=== PATIENT | male | born 1950 | race Caucasian/White ===

== ENCOUNTER 2024-11-18 09:16 | Outpatient (CLI) | payer OTHER, MEDICARE, SELFPAY ==
--- OUTSIDE RECORDS SUMMARY | 2024-11-18 09:33 | XMS_ITS | Referral Summary ---
Author Organization [facility] Address [address] [place] [address] Care Team Providers Care Laborer Filter Plant Name Role Phone Duncan Andre MD Unavailable [phone] Yuliya Reyna MD Unavailable [phone] Albert Driscoll DO Primary Care Provider [phone] Allergies No known active allergies Medications vibegron (Gemtesa) 75 mg tablet Take 75 mg by mouth nightly Active pantoprazole DR (PROTONIX) 40 mg EC tabletIndication s:Stress Ulcer Prophylaxis Take 1 tablet (40 mg total) by mouth 2 (two) times a day 60 tablet 1 3 Active Additional Information Patient taking differently:40 mg oralNightly, Indications: Stress Ulcer Prophylaxis, Informant: Self, Reported on 05/04/2024 metoprolol tartrate (LOPRESSOR) 25 mg immediate release tabletIndication s:Atrial Arrhythmia Take 0.5 tablets (12.5 mg total) by mouth 2 (two) times a day 30 tablet 1 3 Active Additional Information Patient taking differently:12.5 mg oral 2 times daily,Indications: Atrial Arrhythmia, hypertension, Informant: Self, Reported on 05/04/2024 cholecalciferol (VITAMIN D-3) 2000 unit tablet Take 1 tablet (2,000 Units total) by mouth every morning 4 Active hydroCHLOROthiaz elfego (HYDRODIURIL) 25 mg tablet Take 1 tablet (25 mg total) by mouth every morning 3 Active meloxicam (MOBIC) 15 mg tablet Take 1 tablet (15 mg total) by mouth nightly 4 Active metFORMIN (GLUCOPHAGE) 500 mg tablet Take 1 tablet (500 mg total) by mouth nightly 4 Active rOPINIRole (REQUIP) 0.5 mg tablet Take 1 tablet (0.5 mg total) by mouth nightly 4 Active aspirin 81 mg enteric coated tabletIndication s:Deep Vein Thrombosis Prevention Take 1 tablet (81 mg total) by mouth 2 (two) times a day for 14 days 28 tablet 5 Active docusate sodium (COLACE) 100 mg capsuleIndicatio ns:constipation Take 1 capsule (100 mg total) by mouth 2 (two) times a day 60 capsule 1 5 Active acetaminophen 500 mg capsuleIndicatio ns:Pain Take 2 capsules (1,000 mg total) by mouth every 6 (six) hours 112 tablet 5 Active oxyCODONE (ROXICODONE) 5 mg immediate release tabletIndication s:Pain Take 1 tablet (5 mg total) by mouth every 4 (four) hours as needed for pain 20 tablet 5 Active Active Problems Problem Noted Date Diagnosed Date S/P reverse total shoulder arthroplasty, left Osteoarthritis of glenohumeral joint, left 03/01 Aortic stenosis due to bicuspid aortic valve 03/2023 Aortic valve stenosis 08/09/2022 Fatigue 07/12/2022 Overview (07/12/2022): Added automatically from request for surgery [id number] Essential (primary) hypertension 08/03/2021 08/12/2022 Upper gastrointestinal bleed 07/13/2021 Shortness of breath 07/02/2021 Overview (08/12/2022): Added automatically from request for surgery [id number] Dizziness on standing 07/02/2021 08/12/2022 History of surgical procedure 03/06/2015 Bicuspid aortic valve 12/06/2013 08/12/2022 Cardiovascular symptoms 12/06/2013 08/13/19 23 Social History Tobacco Use Types Packs/Day Years Used Date Smoking Tobacco: Never Cigarettes Smokeless Tobacco: Never Tobacco Cessation:Counseling Given: Not Answered OASIS D0700: Social Isolation Answer Da te Recorded Frequency of experiencing loneliness or isolatio n Never 10/24/2022 OASIS A1250: Transportation Answer Date Recorded Lack of Transportation (Medical) No 10/24/2022 Lack of Transportation (Non-Medical) No 10/24/2022 Patient Unable or Declines to Respond No 10/24/2022 OASIS B1300: Health Literacy Answer Sebastian e Recorded Frequency of needing help to read materials from doctor or pharmacy Never 10/24/2022 Social Connection and Isolat ion Panel [NHANES] Answer Date Recorded In a typical week, how many times do you talk on the phone with family, friends, or neighbors? More than three times a week 09/02/2022 How often do you get togethe r with friends or relatives? More than three times a week 09/02/2022 How often do you attend chur or cheondoism services? Never 09/02/2022 Do you belong to any clubs o r organizations such as nondenominational groups, unions, fraternal or athletic groups, or school groups? No 09/02/2022 How often do you attend meet ings of the clubs or organizations you belong to? Never 09/02/2022 Are you , , di vorced, , never , or living with a partner? 09/02/2022 AUDIT-C Answer Date Recorded Q1: How often do you have a drink containing alc ohol? Monthly or less 05/04/2024 Q2: How many drinks containi ng alcohol do you have on a typical day when you are drinking? 1 or 2 05/04/2024 Q3: How often do you have si x or more drinks on one occasion? Never 05/04/2024 Overall Financial Resource Strain (CARDIA) Answe r Date Recorded How hard is it for you to pa y for the very basics like food, housing, medical care, and heating? Not hard at all 09/02/2022 Hunger Vital Sign Answer Date Recorded Within the past 12 months, y ou worried that your food would run out before you got the money to buy more. Never true 09/03/19 23 Within the past 12 months, t he food you bought just didn't last and you didn't have money to get more. Never true 09/02/2022 PRAPARE - Transportation Answer Date Re corded In the past 12 months, has l ack of transportation kept you from medical appointments or from getting medications? No 08/19 In the past 12 months, has l ack of transportation kept you from meetings, work, or from getting things needed for daily living? No 09/02/2022 Housing Stability Vital Sign Answer Sebastian e Recorded In the last 12 months, was t here a time when you were not able to pay the mortgage or rent on time? No 09/02/2022 In the last 12 months, how many places have you lived? 1 09/02/2022 In the last 12 months, was t here a time when you did not have a steady place to sleep or slept in a group home (including now)? No 09/02/2022 Personal Safety Answer Date Recorded Have you ever been in or are you currently in a harmful physical or emotional relationship or is someone making you feel afraid or unsafe? Denies 05/04/2024 Sex and Gender Information Value Date Recorded Sex Assigned at Not on file Legal Sex Male 2:14 AM VOCATIONAL CASE MANAGER Gender Identity Male 07/30/2023 4:12 PM CDT Sexual Orientation Straight 07/30/2023 4: 12 PM CDT Last Filed Vital Signs Vital Sign Reading Time Taken Comments Blood Pressure 122/79 05/05/2024 8:10 AM VOCATIONAL CASE MANAGER Pulse 71 05/05/2024 8:10 AM VOCATIONAL CASE MANAGER Temperature 36.8 C (98.3 F) 05/05/2024 8:10 AM VOCATIONAL CASE MANAGER Respiratory Rate 16 05/05/2024 8:10 AM VOCATIONAL CASE MANAGER Oxygen Saturation 93% 05/05/2024 8:10 AM VOCATIONAL CASE MANAGER Inhaled Oxygen Concentration - - Weight 103 kg (227 lb) 06/14/2024 11:14 AM VOCATIONAL CASE MANAGER Height 172.7 cm (5' 8) 06/14/2024 11:14 AM VOCATIONAL CASE MANAGER Body Mass Index 34.52 06/14/2024 11:14 AM VOCATIONAL CASE MANAGER Plan of Treatment Not on file Medical Devices Implanted Type Area Ortho Nurse Device Identifier Shelf Expiration Date Model / Serial / Lot [employer] Lobo-Quinten ds Perimount Magna Ease 27mm Bioprosthesis [id number] - [id number] - [id number] Implanted:Qty: 1 on 08/30/2022 by Duncan Andre MD at [facility] Prosthetic Valve N/A: Heart [employer] 04/28/2026 [id number] / [id number] / Description:Aortic valve Andrew V[employer] Device Clsr Perclose Prostyle Sut-Mediatd Closure-Repair Sys 94897-91 - [id number] Implanted:Qty: 1 on 08/30/2022 by Duncan Andre MD at [facility] N/A: Heart [employer] 01/18/2023 [id number] / / [id number] Andrew Vascular Device Clsr Perclose Prostyle Sut-Mediatd Closure-Repair Sys 20398-03 - [id number] Implanted:Qty: 1 on 08/30/2022 by Duncan Andre MD at [facility] N/A: Heart [employer] 01/18/2023 12814-34 / / [id number] [employer] Insert Humeral Retention Reverse Size 3/4 +0 Perform 42mm Combination [id number] - [id number] - [id number] Implanted:Qty: 1 on 05/04/2024 by Charles Goff MD at [facility] Left: Shoulder [employer] 12/18/2027 [id number] / [id number] / [employer] Baseplate Glenoid Reverse Aequalis Perform 29mm Ulw075 - [id number] - [id number] Implanted:Qty: 1 on 05/04/2024 by Charles Goff MD at [facility] Left: Shoulder [employer] 03/10/2029 [id number] / [id number] / [employer] Aequalis Perform Reversed 6.5mm 35mm Central Glenoid Screw Ivb433 - [id number] Implanted:Qty: 1 on 05/04/2024 by Charles Goff MD at [facility] Left: Shoulder [employer] [id number] / / [employer] Aequalis Perform Reversed 5mm 34mm Peripheral Glenoid Screw [id number] - [id number] Implanted:Qty: 2 on 05/04/2024 by Charles Goff MD at [facility] Left: Shoulder [employer] [id number] / / [employer] Aequalis Perform Reversed Od5 Mm L46 Mm Peripheral Glenoid Screw Baseplate Nonsterile Tup374 - [id number] Implanted:Qty: 1 on 05/04/2024 by Charles Goff MD at [facility] Left: Shoulder [employer] [id number] / / [employer] Tornier Aequalis Perform Od42 Mm Reverse Shoulder Standard Sphere Glenoid Ytl763 - [id number] - [id number] Implanted:Qty: 1 on 05/04/2024 by Charles Goff MD at [facility] Left: Shoulder [employer] 11/13/2028 [id number] / [id number] / [employer] Tray Stem Humeral Shoulder Reverse Long Tornier Perform [id number] Dwx3pl - [id number] - [id number] Implanted:Qty: 1 on 05/04/2024 by Charles Goff MD at [facility] Left: Shoulder [employer] 01/21/2029 [id number] / [id number] / Insurance MEDICARE [facility] MEDICARE [facility] MEDICARE [employer] ACCESS OOS MEDICARE Advance Directives For more information, please contact: [phone] * Full Code (Latest Code Status on File) Date Activated Date Inactivated Comments 05/04/2024 2:12 PM 05/05/2024 6:34 PM * Full Code Date Activated Date Inactivated Comments 08/30/2022 1:41 PM 09/05/2022 5:43 PM * Full Code Date Activated Date Inactivated Comments 07/22/2022 3:30 PM 07/22/2022 11:33 PM Care Teams Laborer Filter Plant Relationship Specialty Start Date End Date Albert Driscoll DO [address] [place] [address] PCP - General Internal Medicine 03/01/24 Duncan Andre MD Surgeon Cardiothoracic Surgery 09/05/22 Yuliya Reyna MD [address] [place] [address] Consulting Physician Cardiovascular Disease 09/05/22
--- OUTSIDE RECORDS SUMMARY | 2024-11-18 09:33 | XMS_ITS | Clinical Summary ---
Author Organization [facility] Address [address] [place] [address] Care Team Providers Care Plywood Patcher Name Role Phone Duncan Andre MD Unavailable [phone] Yuliya Reyna MD Unavailable [phone] Albert Driscoll DO Primary Care Provider [phone] Allergies No known active allergies Medications vibegron [...] (07/12/2022): Added automatically from request for surgery [id number] Essential (primary) hypertension 08/03/2021 08/12/2022 Upper gastrointestinal bleed 07/13/2021 Shortness of breath 07/02/2021 Overview (08/12/2022): Added automatically from request for surgery [id number] Dizziness on standing 07/02/2021 08/12/2022 History of surgical procedure 03/06/2015 Bicuspid aortic valve 12/06/2013 08/12/2022 Cardiovascular symptoms 12/06/2013 08/13/19 23 Surgical History Surgery Date Site/Laterality Comments FL EXCISION HYDROCELE UNILATERAL Inguinal Hernia Repair With Excision Of Hydrocele - (Added by TW Conv) EAR SURGERY Ear Surgery - (Added by TW Conv) BLADDER SURGERY 03/21/2022 - 04/20/2022 Urolift FRACTURE SURGERY ANKLE FRACTURE SURGERY 04/21/1981 - 04/20/1982 Right re-attachment, skin grafts, ORIF ANKLE HARDWARE REMOVAL 04/21/2014 - 04/20/2015 Right CARDIAC CATHETERIZATION 07/22/2022 COLONOSCOPY CYSTOSCOPY x2 UPPER GASTROINTESTINAL ENDOSCOPY 07/20/2021 - 08/18/2021 SPINE SURGERY CERVICAL SPINE SURGERY EAR SURGERY Right glue ear IR PICC LINE PLACEMENT > 5 YEARS 10/13/2014 N/A CARDIAC VALVE REPLACEMENT PROSTATE SURGERY Medical History Medical History Date Comments Multiple injuries Fracture, mult iple, compound - (Added by TW Conv) Open wound of right lower leg Wo und of right leg - (Added by TW Conv) GERD (gastroesophageal reflux disease) RA (rheumatoid arthritis) (HCC) GI bleed 07/2021 1 unit PRBC's Anxiety about health History of transfusion H/O dizziness History of methicillin resis tant staphylococcus aureus (MRSA) related to ankle fracture Osteomyelitis (HCC) right ankle Heart disease Hypertension Autoimmune disease GI (gastrointestinal bleed) Family History Medical History Relation Name Comments Arthritis Father Hermes Blood Clot Father Hermes Family history of blood clots - (Added by TW Conv) Clotting disorder Father Hermes Diabetes Father Hermes Hearing loss Father Hermes Vision loss Father Hermes Arthritis Mother Penny Diabetes Mother Penny Family history of diabetes mellitus - (Added by TW Conv) Hypertension Mother Penny Obesity Mother Penny Stroke Mother Penny Blood Clot Sister Family history of blood clots - (Added by TW Conv) Anesthesia problems Neg Hx Relation Name Status Comments Father Hermes Mother Penny Sister Social History Tobacco Use Types Packs/Day Years [...] 09/02/2022 How often do you attend chur ch or scientologist services? Never 09/02/2022 Do you belong to any clubs o r organizations such as latter day groups, unions, fraternal or athletic groups, or [...] place to sleep or slept in a nursing home (including now)? No 09/02/2022 Personal Safety Answer Date Recorded Have you ever been in or are you currently in a harmful physical or emotional relationship or is someone making you feel afraid or unsafe? Denies 05/04/2024 Sex and Gender Information Value Date Recorded Sex Assigned at Not on file Legal Sex Male 2:14 AM PLUMBER APPRENTICE Gender Identity Male 07/30/2023 4:12 PM CDT Sexual Orientation Straight 07/30/2023 4: 12 PM CDT Obstetrics History Last Filed Vital Signs Vital Sign Reading Time Taken Comments Blood Pressure 122/79 05/05/2024 8:10 AM PLUMBER APPRENTICE Pulse 71 05/05/2024 8:10 AM PLUMBER APPRENTICE Temperature 36.8 C (98.3 F) 05/05/2024 8:10 AM PLUMBER APPRENTICE Respiratory Rate 16 05/05/2024 8:10 AM PLUMBER APPRENTICE Oxygen Saturation 93% 05/05/2024 8:10 AM PLUMBER APPRENTICE Inhaled Oxygen Concentration - - Weight 103 kg (227 lb) 06/14/2024 11:14 AM PLUMBER APPRENTICE Height 172.7 cm (5' 8) 06/14/2024 11:14 AM PLUMBER APPRENTICE Body Mass Index 34.52 06/14/2024 11:14 AM PLUMBER APPRENTICE Plan of Treatment Health Maintenance Due Date Last Done Comments Colon Cancer Screening-Colonoscopy 1950 Depression Screening 1950 Hepatitis C Screening 1950 DTaP/Tdap/Td Vaccine (1 - Tdap) 08/03/1963 Hepatitis B Screening 1970 Zoster Vaccine (2 of 3) 04/04/2015 02/07/2015 Pneumococcal vaccine 65+ (2 of 2 - PPSV23) 02/16/2016 02/15/2015 Well Visit 65+ 2017 Covid-19 Vaccine (3 - 2023-2 5 season) 2023 07/28/2020, 06/23/2020 Influenza Vaccine (#1) 2024 2, 01/05/2021, 02/07/2020, Additional history exists Fall Risk Assessment 05/05/2025 05/05/2024 Medical Devices Implanted Type Area Nanny/Household Manager Device Identifier Shelf Expiration Date Model / Serial / Lot [employer] Melodie ds Perimount Magna Ease 27mm Bioprosthesis [id number] - [id number] - [id number] Implanted:Qty: 1 on 08/30/2022 by Duncan Andre MD at [facility] Prosthetic Valve N/A: Heart [employer] 04/28/2026 [id number] [id number] / [id number] / Description:Aortic valve Andrew [employer] Device Clsr Perclose Prostyle Sut-Mediatd Closure-Repair Sys 91828-60 - [id number] Implanted:Qty: 1 on 08/30/2022 by Duncan Andre MD at [facility] N/A: Heart [employer] 01/18/2023 21296-17 / / [id number] Andrew Vascular Device Clsr Perclose Prostyle Sut-Mediatd Closure-Repair Sys 43226-11 - [id number] Implanted:Qty: 1 on 08/30/2022 by Duncan Andre MD at [facility] N/A: Heart [employer] 01/18/2023 43685-21 / / [id number] [employer] Insert Humeral Retention Reverse Size 3/4 +0 Perform 42mm Combination [id number] - [id number] - [id number] Implanted:Qty: 1 on 05/04/2024 by Charles Goff MD at [facility] Left: Shoulder [employer] 12/18/2027 [id number] / [id number] / [employer] Baseplate Glenoid Reverse Aequalis Perform 29mm Lpj670 - [id number] - [id number] Implanted:Qty: 1 on 05/04/2024 by Charles Goff MD at [facility] Left: Shoulder [employer] 03/10/2029 PEG141 / [id number] / [employer] Aequalis Perform Reversed 6.5mm 35mm Central Glenoid Screw Wzu106 - [id number] Implanted:Qty: 1 on 05/04/2024 by Charles Goff MD at [facility] Left: Shoulder [employer] [id number] / / [employer] Aequalis Perform Reversed 5mm 34mm Peripheral Glenoid Screw Njy319 - [id number] Implanted:Qty: 2 on 05/04/2024 by Charles Goff MD at [facility] Left: Shoulder [employer] [id number] / / [employer] Aequalis Perform Reversed Od5 Mm L46 Mm Peripheral Glenoid Screw Baseplate Nonsterile Npf041 - [id number] Implanted:Qty: 1 on 05/04/2024 by Charles Goff MD at [facility] Left: Shoulder [employer] QYV547 / / [employer] Tornier Aequalis Perform Od42 Mm Reverse Shoulder Standard Sphere Glenoid Odp754 - [id number] - [id number] Implanted:Qty: 1 on 05/04/2024 by Charles Goff MD at [facility] Left: Shoulder [employer] 11/13/2028 WNY567 / [id number] / [employer] Tray Stem Humeral Shoulder Reverse Long Tornier Perform [id number] Dwx3pl - [id number] - [id number] Implanted:Qty: 1 on 05/04/2024 by Charles Goff MD at [facility] Left: Shoulder [employer] 01/21/2029 [id number] / [id number] / Insurance MEDICARE [facility]PPO Address: [address] [address] [facility] HMO/PPO Address: [address] [address] MEDICARE [place] [employer] OOS MEDICARE Advance Directives For more information, please contact: [phone] * Full Code (Latest Code Status on File) Date Activated Date Inactivated Comments 05/04/2024 2:12 PM 05/05/2024 6:34 PM * Full Code Date Activated Date Inactivated Comments 08/30/2022 1:41 PM 09/05/2022 5:43 PM * Full Code Date Activated Date Inactivated Comments 07/22/2022 3:30 PM 07/22/2022 11:33 PM Care Teams Plywood Patcher Relationship Specialty Start Date End Date AmericoHenriqueeddie [address] [facility] [address] [place] [address] PCP - General Internal Medicine 03/01/24 Duncan Andre MD Surgeon Cardiothoracic Surgery 09/05/22 Yuliya Reyna MD [address] [facility] [place] [address] Consulting Physician Cardiovascular Disease 09/05/22
--- OUTSIDE RECORDS SUMMARY | 2024-11-18 09:33 | XMS_ITS | Clinical Summary ---
Author Organization [facility] Address [address] [place] [address] Care Team Providers Care Skill Labor Name Role Phone Babak Sanabria MD Primary Care Provider [phone] Source Comments [facility],non-owned Affiliates and Associated Physician Practices is amultiple site organization consisting of ambulatory clinics and hospital sitesin [place], [place], [place] and [place]. This disclosure is being madepursuant to the Care Everywhere program and may not contain all information available regarding this patient. Last updated 18.[facility] Allergies No known active allergies Medications * Be aware that medications may not be up to date on this document. Alwaysverify current medications with the patient. alfuzosin CR 24hr (UROXATROL) 10 MG tablet Take 10 mg by mouth daily. Active lisinopril (PRINIVIL; ZESTRIL) 10 MG tablet Take 10 mg by mouth daily. Take AM DOS HAND BASEBALL SEWER Active meloxicam (MOBIC) 15 MG tablet Take 7.5 mg by mouth daily. Stopped 11/28/08 Active aspirin EC (ECOTRIN) 81 MG tablet Take 81 mg by mouth daily. Stopped 11/24/08 Active hydrocodone-farrukh taminophen (NORCO) 7.5-325 MG tablet Take 1 Tab by mouth every 6 hours as needed for Pain Active Active Problems Problem Noted Date Diagnosed Date Preoperative examination 11/30/2008 Social History Tobacco Use Types Packs/Day Years Used Date Smoking Tobacco: Former Cigarettes 0.5 20 Comments:quit October, Alcohol Use Standard Drinks/Week Comments Yes 0 (1 standard drink = 0.6 oz pur e alcohol) occasionally Sex and Gender Information Value Date Recorded Sex Assigned at Not on file Legal Sex Male 7:49 AM MARINE CARGO SURVEYOR Gender Identity Not on file Sexual Orientation Not on file Last Filed Vital Signs Vital Sign Reading Time Taken Comments Blood Pressure 108/70 10/13/2014 9:21 AM CDT Pulse 67 10/13/2014 9:21 AM CDT Temperature 36.9 C (98.5 F) 10/13/2014 9:21 AM CDT Respiratory Rate 16 10/13/2014 9:21 AM CDT Oxygen Saturation 98% 10/13/2014 9:21 AM CDT Inhaled Oxygen Concentration - - Weight 104.3 kg (230 lb) 10/13/2014 9:21 AM CDT Height 172.7 cm (5' 8) 10/13/2014 9:21 AM CDT Body Mass Index 34.97 10/13/2014 9:21 AM CDT Plan of Treatment Health Maintenance Due Date Last Done Comments COLOGUARD (AGES 45-75) - COL ON CA SCREENING 1952 COLON MONITORING 1952 COLONOSCOPY - COLON CA SCREENING 1952 CT COLONOGRAPHY - COLON CA SCREENING 1952 Colorectal Cancer Screening 1952 FIT - COLON CA SCREENING 1952 FLEX SIG - COLON CA SCREENING 1952 LIPID TESTING 1952 HEPATITIS C SCREENING 07/29/1970 DTAP/TDAP/TD VACCINES (1 - Tdap) 08/03/1971 PNEUMOCOCCAL VACCINE 50+ (1 of 1 - PCV) 2002 ZOSTER VACCINE (1 of 2) 2002 AAA SCREENING 2017 COVID-19 VACCINE (1 - 2023-2 5 season) 2023 DEPRESSION SCREENING 04/21/2024 INFLUENZA VACCINE (#1) 2024 Respiratory Syncytial Virus (RSV) Vaccine Pt: or over 60 yrs (1 - 1-dose 75+ series) 08/03/2027 HEPATITIS B VACCINE Aged Out No longe r eligible based on patient's age to complete this topic HIB VACCINE Aged Out No longer eligi ble based on patient's age to complete this topic HPV VACCINE Aged Out No longer eligi ble based on patient's age to complete this topic MENINGOCOCCAL (Group B) VACC INE SHARED DECISION-MAKING Aged Out No longer eligibl e based on patient's age to complete this topic MENINGOCOCCAL GROUPS A/C/Y/W VACCINE Aged Out No longer eligible b ased on patient's age to complete this topic Insurance ANTHEM Care Teams Skill Labor Relationship Specialty Start Date End Date Babak Sanabria MD [address] [facility] [address] [place] [id number] PCP - General Family Medicine 10/13/14
== END 2024-11-18 09:17 | disposition home or self-care (01) ==
PROVIDERS: PCP Internal Medicine; Visit Provider Otolaryngology
DX: H69.91 Unspecified Eustachian tube disorder, right ear (principal); H90.3 Sensorineural hearing loss, bilateral
CPT/HCPCS: 92557; 92567